=== PATIENT | male | born 1975 | race African-American/Black ===

== ENCOUNTER 2023-06-01 00:24 | Inpatient (IN) | payer SELFPAY ==
[~2023-06-01] VITALS: Ht 180.3 cm; Wt 112.8 kg
[2023-06-01 01:03] LABS: BASOPHILS % (AUTO) 0.7 % (0.0-2.0); EOSINOPHILS % (AUTO) 0.1 % (1.0-6.0); HEMATOCRIT 48.9 % (41-53); HEMOGLOBIN 15.6 g/dL (13.5-17.5); LYMPHOCYTES # (AUTO) 1.2 K/uL (1.0-4.8); LYMPHOCYTES % (AUTO) 22.9 % (22.0-44.0); MEAN CORPUSCULAR HEMOGLOBIN 24.4 pg (26.0-34.0); MEAN CORPUSCULAR HGB CONC 31.9 G/dL (31.0-37.0); MEAN CORPUSCULAR VOLUME 77 fL (80-100); MONOCYTES # (AUTO) 0.7 K/uL (0.1-1.0); MONOCYTES % (AUTO) 12.2 % (2.0-9.0); NEUTROPHILS # (AUTO) 3.5 K/uL (1.8-7.7); NEUTROPHILS % (AUTO) 64.1 % (40.0-70.0); PLATELET COUNT (AUTO) 145 K/uL (150-450); RED BLOOD CELL COUNT(AUTO) 6.39 MIL/uL (4.50-5.90); RED CELL DISTRIBUTION WIDTH 14.7 % (11.5-14.5)
[2023-06-01] MEDS ORDERED: SODIUM CHLORIDE 0.9% 1,000 ML IV ONE ×4 (01:15→08:00)
[2023-06-01 01:17] LABS: ANION GAP 20 mmol/L (8-16); CALCIUM, TOTAL 8.8 mg/dL (8.8-10.5); CARBON DIOXIDE 20 mmol/L (22-29); CHLORIDE 88 mmol/L (98-107); CREATININE 1.52 mg/dL (0.60-1.30); GLOMERULAR FILTR. RATE CALC 59 mL/min (>60); SODIUM SERUM 128 mmol/L (136-145)
[2023-06-01 01:27] LABS: ALANINE AMINOTRANSFERASE 65 U/L (12-78); ALBUMIN 3.4 g/dL (3.4-5.0); ALKALINE PHOSPHATASE 104 U/L (46-116); ASPARTATE AMINOTRANSFERASE 23 U/L (15-37); BILIRUBIN,TOTAL 0.5 mg/dL (0.1-1.0); CREATINE KINASE, TOTAL ONLY 181 U/L (39-308); TOTAL PROTEIN, SERUM 7.8 g/dL (6.4-8.2)
[2023-06-01 01:29] LABS: GLUCOSE,RANDOM 896 mg/dL (70-110)
[2023-06-01 01:30] LABS: B-TYPE NATRIURETIC PEPTIDE 10 pg/mL (0-100)
[2023-06-01] MEDS ORDERED: INSULIN REGULAR, HUMAN 100 UNITS/ML IVP ONE (01:30)
[2023-06-01] MEDS ORDERED: INSULIN REGULAR, HUMAN 100 UNITS in SODIUM CHLORIDE 0.9% 99 ML IV PRN ×2 (01:45)
[2023-06-01 01:54] LABS: ABG BASE EXCESS -9.4 mmol/L (-2.0-3.0); ABG CARBOXYHEMOGLOBIN 0.4 % (0.0-1.5); ABG HCO3 18.5 mmol/L (22.0-26.0); ABG METHEMOGLOBIN 0.4 % (0.0-1.5); ABG OXYGEN CONTENT 22.5 mL/dL (15.0-23.0); ABG OXYGEN SATURATION 97.7 % (95.0-98.0); ABG OXYHEMOGLOBIN 96.9 % (94.0-100.0); ABG PCO2 27 mmHg (35-45); ABG PH 7.378 (7.35-7.450); ABG TOTAL HEMOGLOBIN 16.5 G/dL (12.0-18.0); PO2, ARTERIAL BG 97.7 mmHg (88.0-96.0); SITE, BLOOD GAS LFT RADIAL; SOURCE, BLOOD GAS ARTERIAL; TEMPERATURE, FAHRENHEIT, BG 98.6 FAHREN (96.0-98.6)
[2023-06-01 01:55] LABS: O2 DEVICE,BLOOD GAS ROOM AIR (ROOM AIR)
[2023-06-01 01:59] LABS: APPEARANCE,URINE CLEAR (CLEAR); BILIRUBIN,URINE NEGATIVE (NEGATIVE); GLUCOSE, URINE (UA) >=1000 mg/dL (NEGATIVE); LEUKOCYTE ESTERASE ,URINE NEGATIVE (NEGATIVE); NITRATE,URINE NEGATIVE (NEGATIVE); OCCULT BLOOD,URINE NEGATIVE (NEGATIVE); PROTEIN,URINE NEGATIVE (NEGATIVE); SPECIFIC GRAVITIY, URINE 1.031 (1.003-1.030); UROBILINOGEN,URINE <=1.0 mg/dL (<=1.0)
[2023-06-01 02:02] LABS: AMPHET/METH SCREEN,URINE NEGATIVE (NEGATIVE); BARBITURATE SCREEN, URINE NEGATIVE (NEGATIVE); BENZODIAZEPINES SCREEN,URINE NEGATIVE (NEGATIVE); CANNABINOID SCREEN,URINE POSITIVE (NEGATIVE); COCAINE SCREEN,URINE NEGATIVE (NEGATIVE); METHADONE SCREEN, URINE NEGATIVE (NEGATIVE); OPIATE SCREEN,URINE NEGATIVE (NEGATIVE); PHENCYCLIDINE SCREEN,URINE NEGATIVE (NEGATIVE)
[2023-06-01 02:07] LABS: BACTERIA,URINE None Seen /HPF (None Seen); RBC,URINE None Seen /HPF (0-2); SQUAMOUS EPITHELIAL CELL,UR None Seen /LPF (None Seen); WBC,URINE None Seen /HPF (0-5)
[2023-06-01] MEDS ORDERED: INSULIN REGULAR, HUMAN 100 UNITS in SODIUM CHLORIDE 0.9% 99 ML IV SCH ×2 (02:15)
[2023-06-01] MEDS ORDERED: ONDANSETRON HCL 4 MG/2 ML VIAL IVP PRN ×2 (03:00→08:00)
[2023-06-01] MEDS ORDERED: 0.9% SODIUM CHLORIDE 10 ML SYRINGE IVP PRN (03:00)
[2023-06-01] MEDS ORDERED: ACETAMINOPHEN 325 MG TABLET PO PRN ×2 (03:00→08:00)
[2023-06-01 03:01] LABS: GLUCOMETER DEV NAME(LOC) ER.6
[2023-06-01 04:11] LABS: GLUCOMETER DEV NAME(LOC) ER.6
[2023-06-01] MEDS ORDERED: INSULIN REGULAR, HUMAN 100 UNITS/ML SQ ONE (05:00)
[2023-06-01 05:01] LABS: GLUCOMETER DEV NAME(LOC) ER.6
[2023-06-01 05:52] VITALS: BP 132/74; PULSE 63; RESP 18; TEMP 98.1; O2SAT 100
[2023-06-01] MEDS ORDERED: MAGNESIUM HYDROXIDE SUSPENSION 30 ML UDCUP PO PRN (08:00)
[2023-06-01] MEDS ORDERED: DEXTROSE 50%-WATER 25 GM/50 ML SYRINGE IVP PRN (08:00)
[2023-06-01 08:16] VITALS: BP 124/73; PULSE 64; RESP 19; TEMP 97.9; O2SAT 98
[2023-06-01] MEDS: MetFORMIN HCL 850 MG TABLET PO SCH ×2 (08:49→17:04)
[2023-06-01] MEDS: HEPARIN SODIUM,PORCINE 5,000 UNITS/ML VIAL SQ SCH ×3 (08:49→23:23)
[2023-06-01] MEDS: FAMOTIDINE 20 MG TABLET PO SCH (08:49)
[2023-06-01 11:01] VITALS: BP 135/74; PULSE 67; RESP 19; TEMP 98.2; O2SAT 99
[2023-06-01] MEDS: INSULIN LISPRO 100 UNITS/ML SQ PRN ×3 (12:53→20:44)
[2023-06-01] MEDS: INSULIN GLARGINE,HUM.REC.ANLOG 100 UNITS/ML SQ SCH (13:08)
[2023-06-01 16:01] VITALS: BP 126/90; PULSE 65; RESP 20; TEMP 98.3; O2SAT 99
[2023-06-01 18:41] LABS: GLUCOMETER DEV NAME(LOC) 5N.2C
[2023-06-01 18:41] LABS: GLUCOMETER DEV NAME(LOC) 5N.2C
[2023-06-01 18:41] LABS: GLUCOMETER DEV NAME(LOC) 5N.2C
[2023-06-01 20:35] VITALS: BP 135/77; PULSE 65; RESP 20; TEMP 98.8
[2023-06-02] VITALS: BP 121/79; PULSE 69; RESP 18; TEMP 98.6
[2023-06-02 04:06] LABS: GLUCOMETER DEV NAME(LOC) 5S.1B
[2023-06-02 04:44] VITALS: BP 128/81; PULSE 68; RESP 19; TEMP 98.5
[2023-06-02 05:54] LABS: BASOPHILS % (AUTO) 0.2 % (0.0-2.0); HEMATOCRIT 46.5 % (41-53); HEMOGLOBIN 14.8 g/dL (13.5-17.5); LYMPHOCYTES # (AUTO) 2.8 K/uL (1.0-4.8); LYMPHOCYTES % (AUTO) 49.1 % (22.0-44.0); MEAN CORPUSCULAR HEMOGLOBIN 23.9 pg (26.0-34.0); MEAN CORPUSCULAR HGB CONC 31.9 G/dL (31.0-37.0); MEAN CORPUSCULAR VOLUME 75 fL (80-100); MONOCYTES # (AUTO) 0.4 K/uL (0.1-1.0); MONOCYTES % (AUTO) 6.3 % (2.0-9.0); NEUTROPHILS # (AUTO) 2.5 K/uL (1.8-7.7); NEUTROPHILS % (AUTO) 43.4 % (40.0-70.0); PLATELET COUNT (AUTO) 167 K/uL (150-450); RED CELL DISTRIBUTION WIDTH 13.9 % (11.5-14.5)
[2023-06-02 06:13] LABS: ALANINE AMINOTRANSFERASE 44 U/L (12-78); ALBUMIN 2.8 g/dL (3.4-5.0); ALKALINE PHOSPHATASE 80 U/L (46-116); ANION GAP 12 mmol/L (8-16); ASPARTATE AMINOTRANSFERASE 20 U/L (15-37); BILIRUBIN,TOTAL 0.5 mg/dL (0.1-1.0); CALCIUM, TOTAL 7.9 mg/dL (8.8-10.5); CARBON DIOXIDE 19 mmol/L (22-29); CHLORIDE 98 mmol/L (98-107); GLOMERULAR FILTR. RATE CALC > 60 mL/min (>60); GLUCOSE,RANDOM 283 mg/dL (70-110); POTASSIUM 3.7 mmol/L (3.5-5.1); SODIUM SERUM 129 mmol/L (136-145); TOTAL PROTEIN, SERUM 6.5 g/dL (6.4-8.2)
[2023-06-02] MEDS: INSULIN LISPRO 100 UNITS/ML SQ PRN ×2 (06:17→12:04)
[2023-06-02 07:05] VITALS: BP 122/78; PULSE 60; RESP 18; TEMP 98.8
[2023-06-02] MEDS: HEPARIN SODIUM,PORCINE 5,000 UNITS/ML VIAL SQ SCH (08:13)
[2023-06-02] MEDS: MetFORMIN HCL 850 MG TABLET PO SCH (08:13)
[2023-06-02] MEDS: FAMOTIDINE 20 MG TABLET PO SCH (08:13)
[2023-06-02] MEDS: INSULIN GLARGINE,HUM.REC.ANLOG 100 UNITS/ML SQ SCH (08:14)
[2023-06-02] MEDS ORDERED: METF-1211 PO (11:04)
[2023-06-02] MEDS ORDERED: INSLAN SQ (11:04)
[2023-06-02 11:06] LABS: GLUCOMETER DEV NAME(LOC) 5S.1B
[2023-06-02 11:06] LABS: GLUCOMETER DEV NAME(LOC) 5S.1B
[2023-06-02 11:51] VITALS: BP 119/73; PULSE 69; RESP 18; TEMP 97.1
[2023-06-03 02:21] LABS: GLUCOMETER DEV NAME(LOC) 5S.1B
== END 2023-06-02 14:35 | disposition home or self-care (01) | DRG 638 ==
LOC: EMS 00:25 → 5S 05:26
PROVIDERS: ADMIT Internal Medicine; ATTEND Internal Medicine
DX: E11.00 Type 2 diabetes mellitus with hyperosmolarity without nonketotic hyperglycemic-hyperosmolar coma (NKHHC) (principal); E87.1 Hypo-osmolality and hyponatremia; N17.9 Acute kidney failure, unspecified; E11.65 Type 2 diabetes mellitus with hyperglycemia; E66.9 Obesity, unspecified; Z68.34 Body mass index [BMI] 34.0-34.9, adult; E86.0 Dehydration; Z91.018 Allergy to other foods; Z87.891 Personal history of nicotine dependence
CPT/HCPCS: 70450; 71045; 80053; 80307; 81001; 82009; 82550; 82805; 82962; 83880; 83930; 83935; 84484; 85025; 93005; 99291; G0480; J1644; J1815; J7050; 36415-L1; 36415-TC